=== PATIENT | male | born 1965 | race Caucasian/White ===

== ENCOUNTER → 2019-04-22 | Emergency (ER) | payer BC, SELFPAY ==
[~2019-04-22] MED LIST: Ciprofloxacin 500 MG TAB ONE; Fentanyl 100 MCG/2 ML VIAL ONE; Ondansetron PF 4 MG/2 ML Vial ONE; metroNIDAZOLE 250 MG TAB ONE
[2019-04-22 02:39] LABS: #Basophils 0.1 thou/uL (0.0-0.2); #Lymphocytes 1.5 thou/uL (1.20-3.40); #Monocytes 0.5 thou/uL (0.11-0.59); #Neutrophils 6.8 thou/uL (1.40-6.50); %Basophils 1.2 % (0.0-1.0); %Eosinophils 9.6 % (0.0-10.0); %Lymphocytes 15.4 % (21.0-51.0); %Monocytes 5.4 % (0.0-10.0); %Neutrophils 68.3 % (42.0-75.0); Hemoglobin 15.7 g/dL (14.0-18.0); Mean Corpuscular Hemoglobin 30.6 pg (27.0-31.0); Mean Corpuscular Volume 92.8 fL (78.0-98.0); Platelet Count 251 thou/uL (130-400); RBC Distribution Width 11.8 % (11.5-14.5); Red Blood Cell (RBC) Count 5.12 mill/uL (4.70-6.10); White Blood Cell (WBC) Count 9.9 thou/uL (4.8-10.8)
[2019-04-22 02:47] LABS: Bilirubin Negative (Negative); Blood, Urine Negative (Negative); Clarity Clear (Clear); Glucose, Urine (Dipstick) >=1000 mg/dL (Negative); Leukocyte Negative (Negative); Nitrite Negative (Negative); Protein, Urine (Dipstick) Negative (Neg-Trace); Urobilinogen 0.2 mg/dL (0.2-1.0)
[2019-04-22 02:56] LABS: ALT (SGPT) 35 U/L (8-55); AST (SGOT) 16 U/L (5-34); Albumin 4.2 g/dL (3.5-5.0); Alkaline Phosphatase 78 U/L (40-150); Anion Gap 16 mmol/L (10-20); BUN (Urea Nitrogen) 14 mg/dL (8.4-25.7); Bilirubin, Total 0.6 mg/dL (0.2-1.2); Calc. Creatinine Clearance 0 mL/min (70-130); Calcium 9.6 mg/dL (7.8-10.44); Carbon Dioxide 24 mmol/L (22-29); Chloride 101 mmol/L (98-107); Estimated GFR-MDRD 50; Globulin 2.4 g/dL (2.4-3.5); Glucose 283 mg/dL (70-105); Lipase 14 U/L (8-78); Potassium 4.6 mmol/L (3.5-5.1); Protein, Total 6.6 g/dL (6.0-8.3); Sodium 136 mmol/L (136-145)
--- NOTE | 2019-04-22 07:35 | CT ---
PRELIMINARY REPORT/[facility]/EMERGENCY AFTER HOURS PROCEDURE: EXAM: CT Abdomen and Pelvis With Contrast EXAM DATE/TIME: 04/22/2019 3:14 AM CLINICAL HISTORY: 53 years old, male; Abdominal pain; Localized; Left lower quadrant (llq); Patient HX: Llq abd pain th at started last night while sleeping TECHNIQUE: Imaging protocol: Axial computed tomography images of the abdomen and pelvis with intravenous contras t. Coronal and sagittal reformatted images were created and reviewed. Radiation optimization: All CT scans at this facility use at least one of these dose optimization techniques: automated exposure con trol; mA and/or kV adjustment per patient size (includes targeted exams where dose is matched to clin ical indication); or iterative reconstruction. Contrast material: ISOVUE 370; Contrast volume: 70 ml; Contrast route: LT FA; COMPARISON: No relevant prior studies available. FINDINGS: Lungs: No consolidations in the lung bases. ABDOMEN: Liver: No mass. Gallbladder and bile ducts: No calcified stones. No ductal dilation. Pancreas: No mass or ductal dilation. Spleen: No mass. Adrenals: No mass. Kidneys and ureters: No enhancing mass or hydronephrosis. Stomach and bowel: No obstruction or mucosal thickening. Appendix: No evidence of appendicitis. PELVIS: Bladder: Normal. Reproductive: Normal. ABDOMEN and PELVIS: Intraperitoneal space: No free air or free fluid. Bones/joints: No suspicious bone lesions. Soft tissues: Small right fat-containing inguinal hernia. Vasculature: No abdominal aortic aneurysm. Lymph nodes: No lymphadenopathy. IMPRESSION: No acute findings in the abdomen or pelvis. Thank you for allowing us to participate in the care of your patient. Dictated and Authenticated by: Aleshia Valentino MD 04/22/2019 4:03 AM Central Time ([place] & [place]) FINAL REPORT EMERGENCY AFTER HOURS CT ABDOMEN AND PELVIS: I agree with the preliminary report provided by [facility]. There is no CT explanation for the patient's le ft lower quadrant abdominal pain. POS:
--- NOTE | 2019-04-22 07:41 | RAD ---
CHEST 2 VIEWS: INDICATION: Chest pain. IMPRESSION: No acute cardiopulmonary abnormality. COMMENTS: No comparisons are available. Lungs are clear. Heat size is normal. No acute osseous abnormality i s evident. POS: [facility]
== END ==
LOC: BURERS 01:50
DX: K57.92 Diverticulitis of intestine, part unspecified, without perforation or abscess without bleeding (principal); E11.9 Type 2 diabetes mellitus without complications; E78.5 Hyperlipidemia, unspecified; Z79.899 Other long term (current) drug therapy
CPT/HCPCS: 36416; 71046; 74177; 80053; 81003; 83605; 83690; 84484; 85025; 93005; 94760; 96372; 96374; 96375; 96376; 36415-59; J0500; J2405; J3010

== ENCOUNTER 2019-05-03 08:00 | Emergency (ER) | payer BC ==
[2019-05-03] MEDS ORDERED: Fentanyl 100 MCG/2 ML VIAL ONE ×2 (08:25→08:57)
[2019-05-03 08:45] LABS: Anion Gap 21 mmol/L (10-20); BUN (Urea Nitrogen) 13 mg/dL (8.4-25.7); Calc. Creatinine Clearance 0 mL/min (70-130); Calcium 10.3 mg/dL (7.8-10.44); Carbon Dioxide 20 mmol/L (22-29); Chloride 101 mmol/L (98-107); Estimated GFR-MDRD 51; Glucose 279 mg/dL (70-105); Potassium 4.9 mmol/L (3.5-5.1); Sodium 137 mmol/L (136-145)
[2019-05-03 08:49] LABS: Eosinophils 5 % (0-10); Hemoglobin 16.9 g/dL (14.0-18.0); Lymphocytes 12 % (21-51); MDiff Complete? YES; Mean Corpuscular HGB CONC 31.9 g/dL (32.0-36.0); Mean Corpuscular Hemoglobin 29.8 pg (27.0-31.0); Mean Corpuscular Volume 93.4 fL (78.0-98.0); Mean Platelet Volume 7.2 fL (7.4-10.4); Neutrophil 83 % (42-75); Platelet Count 284 thou/uL (130-400); RBC Distribution Width 12.2 % (11.5-14.5); Red Blood Cell (RBC) Count 5.69 mill/uL (4.70-6.10); White Blood Cell (WBC) Count 11.4 thou/uL (4.8-10.8)
[2019-05-03 08:55] LABS: Clarity Clear (Clear); Specific Gravity, Urine 1.015 (1.005-1.030); pH, Urine 6.5 (5.0-9.0)
[2019-05-03 08:56] LABS: Bilirubin Negative (Negative); Blood, Urine Negative (Negative); Glucose, Urine (Dipstick) 500 mg/dL (Negative); Leukocyte Negative (Negative); Nitrite Negative (Negative); Protein, Urine (Dipstick) Trace mg/dL (Neg-Trace); Urobilinogen 0.2 mg/dL (0.2-1.0)
[2019-05-03] MEDS ORDERED: Dicyclomine 20 MG TAB ONE (08:57)
== END 2019-05-03 10:03 | disposition home or self-care (01) ==
LOC: BURERS 08:00
DX: K29.00 Acute gastritis without bleeding (principal); E11.9 Type 2 diabetes mellitus without complications; E03.9 Hypothyroidism, unspecified; Z79.899 Other long term (current) drug therapy; Z79.84 Long term (current) use of oral hypoglycemic drugs
CPT/HCPCS: 36415; 80048; 81003; 85025; 96361; 96374; 96376; J3010